=== PATIENT | female | born 1995 | race Caucasian/White ===

== ENCOUNTER → 2019-05-20 | Outpatient (CLI) | payer OTHER ==
[~2019-05-20] MED LIST: ISOVUE-370 76% 100ML VIAL (Q9967) As Ordered ONE
--- NOTE | 2019-05-20 15:16 | REP ---
HYSTEROSALPINGOGRAM: The was referred for hysterosalpingogram. The patient's referring clinician catheterized the cervix and injected contrast while I performed fluoroscopy. Uterine cavity opacifies well with no filling defect. The uterus is deviated to the left of midline. Contrast flows freely through both fallopian tubes, which do not appear to be significantly dilated. There is free bilateral intraperitoneal spillage of contrast indicating bilateral fallopian tube patency. IMPRESSION: Bilateral fallopian tubes are patent. Fluoroscopy time is 0.4 minutes. Electronically Signed by Alex Alva MD 05/20/2019 03:59 P
== END ==
LOC: M RADPRO 11:40
PROVIDERS: ATTEND Obstetrics & Gynecology
DX: N97.0 Female infertility associated with anovulation (principal)
CPT/HCPCS: 58340; 74740; Q9967